=== PATIENT | female | born 1995 | race Caucasian/White ===

== ENCOUNTER 2018-05-21 08:02 | Emergency (ER) | payer BC ==
--- NOTE | 2018-05-21 08:52 | EDPHY ---
HPI/HX/ROS/PE/MDM Narrative: CHIEF COMPLAINT: Hematuria, abdominal pain. HPI: This patient is a healthy 23 y/o female arriving with her friend. She complains of hematuria and abdominal pain. She felt well yesterday, but noted dysuria this morning on waking. She has had two episodes of hematuria since then. She has never had a UTI in the past. She denies any subjective fevers, but has not measured her temperature. While driving here, she noted lower abdominal pain, but this has largely resolved. She denies any rashes or abnormal vaginal discharge. LMP 5 days ago. No history of abdominal surgeries or sexually transmitted infections. REVIEW OF SYSTEMS: A comprehensive 10 system review of systems is otherwise negative aside from elements mentioned in the history of present illness and medical decision making. PMH: Denies SOCIAL HISTORY: Friend at bedside. Single. Does not abuse tobacco, drugs, or alcohol. PHYSICAL EXAM: General:Patient is alert, in no acute distress. She is well-appearing. ENT:Eyes are normal to inspection. ENT inspection normal. Neck: Normal inspection. Full range of motion. Respiratory:No respiratory distress. Breath sounds normal bilaterally. Cardiovascular: Regular rate and rhythm. Strong peripheral pulses. Normal cap refill. Abdomen:The abdomen is nontender to palpation. There are no peritoneal signs. There are normal bowel sounds. Back: Normal to inspection. No tenderness to palpation. Skin: Normal color. No rash. Warm and dry. Extremities: Normal appearance. Full range of motion. Neuro: Oriented x3. Normal motor function. Normal sensory function. ED Course: 23 y/o female presents with dysuria, hematuria, and mild intermittent abdominal discomfort. Symptoms are largely consistent with UTI. Plan for UA with culture. UA is positive for UTI. Urine culture pending. Reassessed patient. Discussed laboratory results. Plan to discharge home in good condition with prescription for Macrobid and Pyridium for symptom relief. We will call the patient with culture results. Follow up and return precautions discussed. She is comfortable with this plan. I see no signs of pyelonephritis, kidney stone, STD or appendicitis. - Data Points Laboratory Results: 05/21/18 08:47 Urine Color SHAUN Urine Appearance TURBID Urine pH 6.0 (5.0-7.5) Ur Specific [place] 1.023 (1.002-1.030) Urine Protein 2+ H (NEGATIVE) Urine Ketones NEGATIVE (NEGATIVE) Urine Blood 3+ H (NEGATIVE) Urine Nitrate NEGATIVE (NEGATIVE) Urine Bilirubin NEGATIVE (NEGATIVE) Urine Urobilinogen NEGATIVE EU EU (0.2-1.0) Ur Leukocyte Esterase 2+ H (NEGATIVE) Urine RBC 50-182 /hpf H /hpf (0-3) Urine WBC 50-182 /hpf H /hpf (0-3) Ur Epithelial Cells NONE SEEN /lpf /lpf (NONE-1+) Urine Mucus 4+ /lpf H /lpf (NONE-1+) Urine Glucose NEGATIVE (NEGATIVE) General Initial Vital Signs: Initial Vital Signs Temperature (C) 36.6 C 05/21/18 08:10 Heart Rate 104 H 05/21/18 08:10 Respiratory Rate 18 05/21/18 08:10 Blood Pressure 113/70 05/21/18 08:10 O2 Sat (%) 98 05/21/18 08:10 O2 Delivery Mode Room Air Allergies/Adverse Reactions: No Known Allergies Allergy (Verified 05/21/18 08:13) Home Medications: Medication Instructions Recorded Azithromycin [Zithromax] 250 mg PO DAILY #4 tab 01/07/16 Fluticasone Nasal [Flonase Nasal 2 sprays NASAL DAILY #1 mdi 01/07/16 Stewart (RX)] Multi-Day Vitamins 01/07/16 Spironolactone 01/07/16 Nitrofurantoin Monohyd/M-Cryst 100 mg PO BID #14 cap 05/21/18 [Nitrofurantoin [place]-Macrocrystal] Phenazopyridine HCl [Pyridium] 200 mg PO TID #6 tab 05/21/18 Departure - Departure Disposition: Home, Routine, Self-Care Clinical Impression: Urinary tract infection Condition: Good Instructions: Phenazopyridine (By mouth), Nitrofurantoin Combination (By mouth) , Urinary Tract Infection in Women (ED) Additional Instructions: Follow-up with your primary doctor within 72 hours. Take Macrobid as prescribed. It is important to finish your entire course of antibiotics even if you are feeling better. Take Pyridium as prescribed. Return to the Emergency Department for fever, worsening pain, flank pain or failure to improve within 72 hours. It is possible that the bacteria causing your infection is resistant to the antibiotic we've placed you on (Macrobid). We have sent a urine for culture, if this comes back with a resistant bacteria, we will call you at the number you provided to us. Referrals: [facility] [Other] - As per Instructions Stand Alone Forms: School Excuse Prescriptions: Nitrofurantoin Monohyd/M-Cryst [Nitrofurantoin [place]-Macrocrystal] 100 mg PO BID #14 cap Phenazopyridine HCl [Pyridium] 200 mg PO TID #6 tab Report Scribed for: Garett Asencio Report Scribed by: Lili Gupta Date of Report: 05/21/18 Time of Report: 08:52 Physician Review and Approval Statement: Portions of this note were transcribed by an ED scribe. I personally performed the history, physical exam, and medical decision making; and confirm the accuracy of the information in the transcribed note.
[2018-05-21 09:36] VITALS: BP 115/69
== END 2018-05-21 09:30 | disposition home or self-care (01) ==
DX: N39.0 Urinary tract infection, site not specified (principal)

== ENCOUNTER 2018-07-28 20:22 | Emergency (ER) | payer BC ==
--- NOTE | 2018-07-28 20:38 | EDPHY ---
H & P Time Seen by Provider: 07/28/18 20:38 HPI/ROS: CHIEF COMPLAINT: Left ankle pain HISTORY OF PRESENT ILLNESS: Fall 8 ft rock climbing, left ankle and foot pain. About an hour prior to arrival. [place] a pop. Does have pain with walking. REVIEW OF SYSTEMS: No knee or other injuries PAST MEDICAL HISTORY: [place] tooth surgery Social history: Nonsmoker General Appearance: Alert and conversant, cooperative. Knee normal, proximal tib-fib normal, compartments nontender. Pain over the instep of the ankle as well as the lateral malleolus and the 5th metatarsal of the left foot. Normal motor sensory and dorsalis pedis pulse. Skin intact. Emergency Department course/MDM: Patient declined pain medication. 2101: X-rays of the left tib-fib ankle and foot reviewed with the patient, all negative. She has significant pain, discussed CT scan to evaluate for talar injury consented. 2140: Negative CT per Radiology, discussed with the patient. Chao parker, corbinutches, mandatory orthopedic referral. Smoking Status: Never smoked Constitutional: Initial Vital Signs Temperature (C) 36.7 C 07/28/18 20:24 Heart Rate 106 H 07/28/18 20:24 Respiratory Rate 18 07/28/18 20:24 Blood Pressure 120/97 H 07/28/18 20:24 O2 Sat (%) 100 07/28/18 20:24 O2 Delivery Mode Room Air Allergies/Adverse Reactions: No Known Allergies Allergy (Verified 05/21/18 08:13) Home Medications: Medication Instructions Recorded Spironolactone 01/07/16 Nitrofurantoin Monohyd/M-Cryst 100 mg PO BID #14 cap 05/21/18 [Nitrofurantoin [place]-Macrocrystal] MDM/Departure - MDM Imaging Results: Imaging Impressions Ankle X-Ray 07/28/18 20:27 Impression: Negative for fracture. Left Ankle Series, Three Views History: Pain following trauma. Findings: A fracture or other acute osseous abnormality is not identified. The bone alignment is normal. The ankle mortise has a normal contour. Soft tissues are unremarkable. Impression: Negative for fracture. Left Foot, Three Views Clinical Indications: Pain following trauma. Findings: A fracture or other acute osseous abnormality is not identified. The bone alignment is normal. No radiopaque foreign body is seen. Impression: Left foot negative for fracture. E:PK/amm Foot X-Ray 07/28/18 20:40 Impression: Negative for fracture. Left Ankle Series, Three Views History: Pain following trauma. Findings: A fracture or other acute osseous abnormality is not identified. The bone alignment is normal. The ankle mortise has a normal contour. Soft tissues are unremarkable. Impression: Negative for fracture. Left Foot, Three Views Clinical Indications: Pain following trauma. Findings: A fracture or other acute osseous abnormality is not identified. The bone alignment is normal. No radiopaque foreign body is seen. Impression: Left foot negative for fracture. E:PK/amm Tibia/Fibula X-Ray 07/28/18 20:40 Impression: Negative for fracture. Left Ankle Series, Three Views History: Pain following trauma. Findings: A fracture or other acute osseous abnormality is not identified. The bone alignment is normal. The ankle mortise has a normal contour. Soft tissues are unremarkable. Impression: Negative for fracture. Left Foot, Three Views Clinical Indications: Pain following trauma. Findings: A fracture or other acute osseous abnormality is not identified. The bone alignment is normal. No radiopaque foreign body is seen. Impression: Left foot negative for fracture. E:PK/amm Extremity CT 07/28/18 20:59 Impression: 1. Negative for fracture. 2. See above report for additional findings. Results called and discussed with Deshawn Macias M.D., on July 28, 2018 at 2129. - Depart Disposition: Home, Routine, Self-Care Clinical Impression: Sprain of left ankle Condition: Good Instructions: Hydrocodone/Acetaminophen (By mouth), Ankle Sprain (ED) Additional Instructions: Your x-rays and CT scan did not show a fracture. Wear boot at all times except when in the shower. Crutches with no weight-bearing. Follow-up with Orthopedics this week as directed, Dr. Mcdonnell. Referrals: [facility] [Other] - As per Instructions Montrell Mcdonnell MD [Medical Doctor] - 2-3 days, call for appt.
[2018-07-28] MEDS ORDERED: HYDROCOD/APAP 5/325 PREPACK#6 BTL TAKEHOME ONE (21:02)
[2018-07-28 21:55] VITALS: BP 120/73
== END 2018-07-28 21:55 | disposition home or self-care (01) ==
DX: S93.402A Sprain of unspecified ligament of left ankle, initial encounter (principal); W17.89XA Other fall from one level to another, initial encounter; Y93.31 Activity, mountain climbing, rock climbing and wall climbing
CPT/HCPCS: L4386